=== PATIENT | male | born 1975 ===

== ENCOUNTER 2016-08-29 14:24 | Emergency (ER) | payer OTHER ==
--- NOTE | 2016-08-29 14:46 | ED PDOC ---
Arrival/HPI - General Chief Complaint: Weakness/Neurological Deficit Time Seen by Provider: 08/29/16 14:32 Historian: Patient - History of Present Illness Narrative History of Present Illness (Text): 08/29/16 14:45 41 year old male who denies any past medical history presents to the emergency department with 1.5 week duration of intermittent numbness to the whole face. He states he gets lightheaded only when drives. Patient states he feels he may have difficulty speaking, but states he is speaking fine. Patient states he saw his PMD for these symptoms but has not received the results of his workup. Contrary to triage, patient states onset of symptoms was over one week ago. Denies chest pain, shortness of breath, headache, dizziness, weakness, or other symptoms. PMD: Dr. Best ([place]) Time/Duration: > week Symptom Onset: Gradual Modifying Factors (Text): None Associated Symptoms (Text): None Past Medical History - Infectious Disease Hx of Infectious Diseases: None - Psychiatric Hx Substance Use: No Family/Social History - Physician Review Nursing Documentation Reviewed: Yes Family/Social History: Unknown Family HX Smoking Status: Never Smoked Hx Alcohol Use: No Hx Substance Use: No Allergies/Home Meds Allergies/Adverse Reactions: Allergies aspirin Allergy (Uncoded 08/29/16 14:41) RASH Home Medications: Home Meds Medication Instructions Recorded Confirmed No Known Home Med 08/29/16 08/29/16 Review of Systems - Physician Review All systems were reviewed & negative as marked: Yes Physical Exam - Physical Exam Narrative Physical Exam (Text): - Review of Systems Constitutional: Normal. absent: Fatigue, Weight Change, Fevers Eyes: Normal ENT: Normal Respiratory: Normal absent: SOB, Cough, Sputum Cardiovascular: Normal absent: Chest pain, Palpitations, Syncope Gastrointestinal: Normal absent: Abdominal pain, Diarrhea, Nausea, Vomiting Genitourinary: Normal. absent: Dysuria, Frequency, Hematuria Musculoskeletal: Normal. absent: Arthralgias, Back Pain, Neck Pain Skin: Normal Neurological: Numbness to the face absent: Focal Weakness Endocrine: Normal Hemo/Lymphatic: Normal Psychiatric: Normal - Physical exam Patient appears age appropriate, speaking full sentences without difficulty - Systems Exam Head: Present: Atraumatic, Normocephalic Pupils: Present: PERRL Extraocular Muscles: Present: EOMI Conjunctiva: Present: Normal Mouth: Present: Moist Mucous Membranes Neck: Present: Normal Range of Motion. No: MIDLINE TENDERNESS, Paraspinal Tenderness Respiratory/Chest: Present: Clear to Auscultation, Good Air Exchange. No: Respiratory Distress, Accessory Muscle Use, Tachypneic Cardiovascular: Present: Regular Rate and Rhythm, Normal S1, S2, Peripheral Pulses Present. No: Murmurs Abdomen: Present: Normal Bowel Sounds, No: Tenderness, Peritoneal Signs, Rebound, Guarding, Distention Back: Present: Normal Inspection. No: Midline Tenderness, Paraspinal Tenderness Upper Extremity: Present: Normal Inspection. No: Cyanosis, Edema Lower Extremity: Present: Normal Inspection. No: Edema Neurological: Present: GCS=15, Speech Normal, cranial nerves II through XII fully intact with no cerebellar abnormality, neuro-sensory fully intact. No focal neurological deficits. Skin: Present: Warm, Dry, Normal Color. No: Rashes Lymphatic: Present: OX3, NI, NC Psychiatric: Present: Alert, Oriented x 3, Normal Insight, Normal Concentration Vital Signs Reviewed: Yes Vital Signs Temp Pulse Resp BP Pulse Ox 08/29/16 15:01 98.9 F 88 18 119/55 L 98 08/29/16 14:40 98.9 F 84 16 132/80 99 08/29/16 14:37 88 18 154/102 H 98 Blood Pressure: Hypertensive Pulse: Regular Respiratory Rate: Normal Appearance: Positive for: Well-Appearing, Non-Toxic, Comfortable Pain Distress: None Mental Status: Positive for: Alert and Oriented X 3 - Systems Exam Neurological: Present: Motor Func Grossly Intact, Normal Sensory Function, Normal Cerebellar Funct, Norm Deep Tendon Reflexes Medical Decision Making ED Course and Treatment: Impression: 41 year old male who denies any past medical history presents to the emergency department with 1.5 week duration of intermittent numbness to the whole face. On physical exam, patient has no acute findings. Plan: -- CT Head, EKG, Chest x-ray -- Labs -- Reassess and disposition Progress Notes: CT Head Chuck Boner: Luis Kerr MD IMPRESSION: No acute findings Chest X-ray Chuck Boner: Luis Kerr MD IMPRESSION: No active disease EKG shows NSR at [address]-segment elevations, normal intervals. with no prior for comparison. Interpreted by me. 08/29/16 16:00 pt seen in the ER by Dr. Tano Joyce, states to dc pt home with outpatient f/u pt in no distress at this time, has no focal neurological deficits states he feels comfortable being dc'd home Pt states he understands to return to the ER right away for new or worsening symptoms or for inability to f/u with PMD or specialist as instructed. Patient states that he fully agrees with and understands discharge instructions. States that he agrees with the plan and disposition. Verbalized and repeated discharge instructions and plan. I have given the patient opportunity to ask any additional questions. - Lab Interpretations Lab Results: 08/29/16 14:40 08/29/16 14:40 Lab Results 08/29/16 14:40: WBC 4.6, RBC 5.79, Hgb 16.2, Hct 47.7, MCV 82.4, MCH 28.0, MCHC 34.0, RDW 13.4, Plt Count 282, MPV 8.6, Gran % 44.0 L, Lymph % (Auto) 48.7 H, Bleckley % (Auto) 5.6, Eos % (Auto) 1.3 L, Baso % (Auto) 0.4, Gran # 2.04, Lymph # 2.3, Bleckley # 0.3, Eos # 0.1, Baso # 0.02, PT 11.2, INR 1.04, APTT 28.7, Sodium 141, Potassium 4.2, Chloride 101, Carbon Dioxide 29, Anion Gap 15, BUN 15, Creatinine 1.1, Est GFR ( Amer) > 60, Est GFR (Non-Af Amer) > 60, Random Glucose 104, Calcium 9.4, Total Bilirubin 1.8 H, AST 42, ALT 57 H, Alkaline Phosphatase 37 L, Troponin I < 0.01, Total Protein 8.4 H, Albumin 4.6, Globulin 3.8, Albumin/Globulin Ratio 1.2, Triglycerides 131, Cholesterol 178, LDL Cholesterol Direct 97, HDL Cholesterol 35, Blood Type Pending, Antibody Screen Pending, BBK History Checked No verified bt - RAD Interpretation Radiology Orders: 08/29/16 14:45 HEAD W/O (CODE STROKE) [CT] Stat CHEST PORTABLE [RAD] Stat - EKG Interpretation Interpreted by ED Physician: Yes Type: 12 lead EKG - Medication Orders Current Medication Orders: Discontinued Medications Aspirin (Aspirin Chewable) 324 mg PO STAT STA Stop: 08/29/16 15:31 Last Admin: 08/29/16 15:42 Dose: 324 MG Atorvastatin Calcium (Lipitor) 40 mg PO STAT STA Stop: 08/29/16 15:31 Last Admin: 08/29/16 15:42 Dose: 40 MG NIHSS Scale ([place]) Time Performed: 14:45 - How Severe is the Stoke Baseline Level of Consciousness: 0=Alert LOC to Questions: 0=Both comments correct LOC to commands: 0=Obeys both correctly Best Gaze: 0=Normal Visual: 0=No visual loss Facial: 0=Normal Motor Arm - Left: 0=No drift Motor Arm - Right: 0=No drift Motor Leg - Left: 0=No drift Motor Leg - Right: 0=No drift Limb Ataxia: 0=Absent Sensory: 0=Normal Best Language: 0=No aphasia Dysarthia: 0=Normal articulation Extinction & Inattention (Neglect): 0=Normal, no object Score: 0 Risk Level: No Stroke Risk rTPA Inclusion/Exclusion - Refusal of Treatment Patient Refused Treatment: No - Inclusion Criteria for Altepase Patient is 18 years or Older: Yes The Clinical Diagnosis of Ischemic Stroke That is Causing a Potentially Disabling Neurological Deficit: No Time of Onset is Well Established to be Less Than 270 Minute Before Treatment Would Begin: No Risk/Benefit Discussed With Patient/Family Member Present: No - Scribe Statement The provider has reviewed the documentation as recorded by the Jeanine Monroe Provider Scribe Attestation: All medical record entries made by the Jeanine were at my direction and personally dictated by me. I have reviewed the chart and agree that the record accurately reflects my personal performance of the history, physical exam, medical decision making, and the department course for this patient. I have also personally directed, reviewed, and agree with the discharge instructions and disposition. Disposition/Present on Arrival - Present on Arrival Any Indicators Present on Arrival: No History of DVT/PE: No History of Uncontrolled Diabetes: No Urinary Catheter: No History of Decub. Ulcer: No History Surgical Site Infection Following: None - Disposition Have Diagnosis and Disposition been Completed?: Yes Diagnosis: Paresthesia Disposition: HOME/ ROUTINE Disposition Time: 16:01 Patient Plan: Discharge Condition: GOOD Discharge Instructions (ExitCare): Paresthesia (ED) Additional Instructions: PLEASE RETURN TO THE EMERGENCY DEPARTMENT FOR NEW OR WORSENING SYMPTOMS. RETURN RIGHT AWAY IF YOU CANNOT FOLLOW UP WITH YOUR PRIMARY CARE DOCTOR, CLINIC, OR SPECIALIST IN 1-2 DAYS. Referrals: Brian Best MD [Primary Care Provider] - Follow up with primary Jesus Joyce MD [Staff Provider] - Follow up with primary Williams Joyce MD [Staff Provider] - Follow up with primary
--- NOTE | 2016-08-29 14:59 | CT ---
PROCEDURE: CT HEAD WITHOUT CONTRAST. HISTORY: Code Stroke COMPARISON: None available. TECHNIQUE: Axial computed tomography images were obtained through the head/brain without intravenous contrast. Radiation dose: Total exam DLP = 871 mGy-cm. This CT exam was performed using one or more of the following dose reduction techniques: Automated exposure control, adjustment of the mA and/or kV according to patient size, and/or use of iterative reconstruction technique. FINDINGS: HEMORRHAGE: No intracranial hemorrhage. BRAIN: No mass effect or edema. No atrophy or chronic microvascular ischemic changes. VENTRICLES: Unremarkable. No hydrocephalus. CALVARIUM: Unremarkable. PARANASAL SINUSES: Unremarkable as visualized. No significant inflammatory changes. MASTOID AIR CELLS: Unremarkable as visualized. No inflammatory changes. OTHER FINDINGS: None. IMPRESSION: No acute findings
--- NOTE | 2016-08-29 14:59 | RAD ---
HISTORY: cva COMPARISON: No prior. FINDINGS: LUNGS: No active pulmonary disease. PLEURA: No significant pleural effusion identified, no pneumothorax apparent. CARDIOVASCULAR: Normal. OSSEOUS STRUCTURES: No significant abnormalities. VISUALIZED UPPER ABDOMEN: Normal. OTHER FINDINGS: None. IMPRESSION: No active disease.
[2016-08-29 15:00] LABS: ADD MANUAL DIFF? NO
[2016-08-29 15:03] LABS: BASO # 0.02 K/mm3 (0.0-2.0); BASO % 0.4 % (0.0-3.0); EOS # 0.1 (0.0-0.7); EOS % 1.3 % (1.5-5.0); GRAN # 2.04 (1.4-6.5); HEMATOCRIT 47.7 % (42.0-52.0); LYMPH # 2.3 (1.2-3.4); LYMPH % 48.7 % (22.0-35.0); MEAN CELL VOLUME 82.4 fL (80.0-105.0); MEAN PLATELET VOLUME 8.6 fl (7.0-11.0); MONO # 0.3 (0.1-0.6); MONO % 5.6 % (1.0-6.0); PLATELET COUNT 282 10^3/uL (120.0-450.0); RED CELL DISTRIBUTION WIDTH 13.4 % (11.5-14.5); WHITE BLOOD COUNT 4.6 10^3/ul (4.5-11.0)
[2016-08-29 15:07] VITALS: TEMP 98.9
[2016-08-29 15:12] LABS: INR 1.04 (0.93-1.08); PARTIAL THROMBOPLASTIN TIME 28.7 Seconds (23.7-30.8)
[2016-08-29 15:20] LABS: ALB/GLOB RATIO 1.2 (1.1-1.8); ALKALINE PHOSPHATASE 37 U/L (38-133); ALT/SGPT 57 U/L (7-56); AST/SGOT 42 U/L (15-59); BILIRUBIN,TOTAL 1.8 mg/dL (0.2-1.3); BLOOD UREA NITROGEN 15 mg/dL (7-21); CALCIUM 9.4 mg/dL (8.4-10.5); CARBON DIOXIDE 29 mmol/L (21-33); CHLORIDE 101 mmol/L (98-107); CHOLESTEROL 178 mg/dL (130-200); GFR AFRICAN-AMERICAN > 60; GLUCOSE,RANDOM 104 mg/dL (70-110); POTASSIUM 4.2 mmol/L (3.6-5.0); SODIUM 141 mmol/L (132-148); TOTAL PROTEIN 8.4 g/dL (5.8-8.3)
[2016-08-29 15:43] LABS: TROPONIN I < 0.01 ng/mL
[2016-08-29 16:12] VITALS: PULSE 65
[2016-08-29 16:13] VITALS: BP 126/69; RESP 18; O2SAT 98
--- NOTE | 2016-08-29 18:20 | CON ---
DATE: 08/29/2016 HISTORY OF PRESENT ILLNESS: This is a 41-year-old male with a past medical history not sign ificant, who came to the Emergency Room with a complaint of numbness of the face and lightheadedness for the last 1 week and has been having difficulty in speaking and called to evaluate the patient. T he patient is sitting in the ER with his and the present symptoms comes and goes. Denies any di zziness. No nausea or vomiting. No bladder or bowel incontinence. PAST MEDICAL HISTORY: As above. SOCIAL HISTORY: Does not smoke, does not drink. REVIEW OF SYSTEMS: A 10-point review of systems was negative except numbness of the face off and on. PHYSICAL EXAMINATION: VITAL SIGNS: Blood pressure 154/102. HEENT: Normocephalic, atraumatic. NECK: Supple. NEUROLOGIC: Alert, awake, oriented x 3. No aphasia. Cranial nerves II through XII were tested. Pu pils reactive. EOM intact. Visual davalos full. No facial asymmetry. Tongue midline. Motor examin ation: Moves all the extremities equally. Tone normal. Deep tendon reflexes 1+. Both plantars are downgoing. Sensory appears intact. Cerebellar and gait deferred. IMPRESSION: Intermittent numbness of the face and lightheadedness presyncope. CAT scan of the head was done, which was reported negative and chest x-ray was normal. PLAN: Continue workup and will followup. Jesus Joyce MD cc: [id number] TT: 08/29/2016 18:19:28 Confirmation # [id number] Dictation # [id number] pati
--- NOTE | 2016-08-30 12:19 | CARD ---
APPROVED REPORT EKG Measurement Heart [id number] <Conclusion> Normal sinus rhythm Normal ECG
== END 2016-08-29 16:20 | disposition home or self-care (01) ==
LOC: ED 14:24
DX: R20.9 Unspecified disturbances of skin sensation (principal)